=== PATIENT | female | born 1990 | race African-American/Black ===

== ENCOUNTER 2017-12-23 21:27 | Emergency (ER) | payer OTHER ==
[~2017-12-23] VITALS: Ht 175.3 cm; Wt 95.3 kg
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
[2017-12-23] MEDS ORDERED: CYCL-331 PO (22:05)
[2017-12-23] MEDS ORDERED: IBUP800T19 PO (22:05)
[2017-12-23 22:10] VITALS: BP 122/86
== END 2017-12-23 22:10 | disposition home or self-care (01) ==
LOC: ER 21:27
DX: M25.511 Pain in right shoulder (principal); M25.561 Pain in right knee; G89.11 Acute pain due to trauma; V43.92XA Unspecified car occupant injured in collision with other type car in traffic accident, initial encounter; Y93.89 Activity, other specified; Y92.89 Other specified places as the place of occurrence of the external cause; Y99.8 Other external cause status
CPT/HCPCS: 99283